=== PATIENT | male | born 1950 | race Caucasian/White ===

== ENCOUNTER 2024-03-07 04:03 | Inpatient (IN) | payer OTHER ==
[~2024-03-07] VITALS: Ht 177.8 cm; Wt 124.3 kg
[2024-03-07] VITALS (8 sets, daily range): BP systolic 111–148; BP diastolic 62–81
[2024-03-07 04:17] LABS: BASOPHILS ABSOLUTE AUTO 0.05 K/mm3 (0.00-0.23); BASOPHILS PERCENT AUTO 1 % (0-2); EOSINOPHILS ABSOLUTE AUTO 0.24 K/mm3 (0.00-0.68); EOSINOPHILS PERCENT AUTO 2 % (0-6); Hematocrit 33.5 % (37.0-53.0); Hemoglobin 11.3 g/dL (13.5-17.5); IMMATURE GRAN ABSOLUTE AUTO 0.04 K/mm3 (0.00-0.10); IMMATURE GRAN PERCENT AUTO 0 % (0-1); LYMPHOCYTES PERCENT AUTO 29 % (21-46); MONOCYTES ABSOLUTE AUTO 0.77 K/mm3 (0.16-1.47); MONOCYTES PERCENT AUTO 8 % (4-13); Mean Corpuscular HGB 32.1 pg (26.0-34.0); Mean Corpuscular HGB Conc 33.7 g/dL (31.5-36.5); Mean Corpuscular Volume 95 fL (80-100); Mean Platelet Volume 10.5 fL (9.1-12.4); NEUTROPHILS ABSOLUTE AUTO 6.21 K/mm3 (1.96-9.15); NEUTROPHILS PERCENT AUTO 60 % (41-73); Platelet Count 213 K/mm3 (150-400); RDW Coefficient Variation 13.2 % (11.7-14.2); RDW Standard Deviation 45.5 fL (35.1-46.3); Red Blood Cell Count 3.52 M/mm3 (4.30-5.90); White Blood Cell Count 10.31 K/mm3 (4.00-11.30)
[2024-03-07 04:46] LABS: Alanine Aminotransfer (ALT/SGP 24 U/L (12-78); Albumin, Blood 3.2 g/dL (3.4-5.0); Albumin/Globulin Ratio 0.8 (0.8-1.8); Alk Phos 42 U/L (50-136); Anion Gap 17 mmol/L (3-11); Aspartate Aminotrans (AST/SGOT 26 U/L (12-37); Bilirubin, Total 0.5 mg/dL (0.1-1.0); Blood Urea Nitrogen 31 mg/dL (8-24); Bun/Creatinine Ratio 12.3 (12.0-20.0); CO2, Blood 21 mmol/L (21-32); Calcium, Blood 9.5 mg/dL (8.5-10.1); Chloride, Blood 108 mmol/L (98-108); Creatinine, Blood 2.52 mg/dL (0.60-1.20); Globulin, Blood 3.9 g/dL (2.2-4.0); Glomerular Filtration Rate 26 (60-); Glucose, Blood 147 mg/dL (70-99); Sodium, Blood 142 mmol/L (136-145); Total Protein, Blood 7.1 g/dL (6.4-8.2)
[2024-03-07] MEDS ORDERED: Diltiazem HCl 5 MG / ML 5ML Vial IV ONE (04:50)
[2024-03-07] MEDS ORDERED: NS 1,000 ML IV SCH ×2 (04:55→06:00)
[2024-03-07] MEDS ORDERED: Aspirin 81 MG Chew PO ONE (05:05)
[2024-03-07] MEDS ORDERED: Metoprolol Tartrate 1 MG/ML 5 ML VIAL IV PRN (06:00)
[2024-03-07] MEDS ORDERED: Metoprolol Tartrate 1 MG/ML 5 ML VIAL IV ONE (06:00)
[2024-03-07 06:16] LABS: CHOL/HDL RATIO 6.4; Cholesterol 211 mg/dL (50-200); HDL Cholesterol 33 mg/dL (>39); LDL/HDL RATIO 4.4; Low Density Lipoprotein Chol 145 mg/dL (0-110); Triglycerides 167 mg/dL (30-160); Very Low Density Lipoprot Chol 33 mg/dL (6-32)
[2024-03-07] MEDS ORDERED: HydrALAZINE HCl 20 MG / ML 1ML Vial IV PRN (06:20)
[2024-03-07] MEDS ORDERED: TAMSULOSIN HCL0.4 M1 PO (06:58)
[2024-03-07] MEDS ORDERED: Enoxaparin 30 MG/0.3 ML SYR SC SCH (09:00)
[2024-03-07] MEDS ORDERED: Tamsulosin HCl 0.4 MG Cap PO SCH (09:00)
--- NOTE | 2024-03-07 09:55 | NUR ---
SPOKE WITH DR. SHAY IN PERSON. NOTIFIED HIM OF THE PATIENT'S TROPONIN 717 CH. NO CHANGE IN PATIENT'S CONDITION. VITALS STABLE. NO CP
[2024-03-07 16:14] LABS: Anti-Xa UFH, PHA Monitoring <0.10 IU/mL; International Normalized Ratio 1.07; Prothrombin Time Results 11.4 Sec (9.7-11.5)
[2024-03-07] MEDS ORDERED: Dose Adjust by Pharmacy XX STA (16:26)
[2024-03-07] MEDS ORDERED: Heparin Sodium,Porcine/0.5 NS 500 ML IV SCH (16:30)
[2024-03-07] MEDS ORDERED: Heparin Sodium 5000 Units/ML 1ML MDV IV ONE (16:30)
--- NOTE | 2024-03-07 17:54 | NUR ---
PATIENT IS ALERT AND ORIENTED AND COOPERATIVE WITH CARE. NO C/O CP THROUGHOUT THIS SHIFT. TROPONINS WERE ELEVATED TODAY. DR. SHAH CONSULTED THIS AFTERNOON. PATIENT STARTED ON HEPARIN DRIP. IS AT THE BEDSIDE. MAKENNA SULLIVAN'Jonathon PER PATIENT'S REQUEST. WILL CONTINUE TTO MONITOR
[2024-03-07] MEDS ORDERED: Metoprolol Tartrate 25 MG Tab PO SCH (21:00)
[2024-03-07] MEDS ORDERED: Clarify Drug Order XX ONE (23:15)
[2024-03-08 04:06] VITALS: BP 125/78
--- NOTE | 2024-03-08 04:40 | NUR ---
SHIFT SUMMARY. SHIFT HAS BEEN MOSTLY UNREMARKABLE. PT AOX4, PLEASANT, COOPERATIVE WITH CARE, CALLS APPROPRIATELY, ABLE TO MAKE NEEDS KNOWN. HAS BEEN ABLE TO SLEEP SPORADICALLY THROUGHOUT SHIFT. CONTINUES TO DENY CHEST PAIN OR PRESSURE. VITALS STABLE THROUGHOUT SHIFT. TELE ON WITH NO ACUTE CHANGES OR EVENTS. CONTINUES TO RUN SINUS IN THE 60s-80s. HAS BEEN UNABLE TO VOID THROUGHOUT SHIFT. STRAIGHT CATH PERFORMED THIS MORNING PER ORDER OF RESIDENT DR. BALBUENA AND 1 L OF URINE WAS COLLECTED. HAS NOT VOIDED SINCE, IF NO VOIDING BEFORE SHIFT CHANGE WILL PERFORM ADDITIONAL BLADDER SCAN. BED LOCKED IN LOWEST POSITION. CALL LIGHT LEFT WITHIN REACH. CONTINUING TO MONITOR.
[2024-03-08 05:14] LABS: BASOPHILS ABSOLUTE AUTO 0.05 K/mm3 (0.00-0.23); BASOPHILS PERCENT AUTO 0 % (0-2); EOSINOPHILS ABSOLUTE AUTO 0.26 K/mm3 (0.00-0.68); EOSINOPHILS PERCENT AUTO 2 % (0-6); Hematocrit 32.2 % (37.0-53.0); Hemoglobin 11.1 g/dL (13.5-17.5); IMMATURE GRAN ABSOLUTE AUTO 0.03 K/mm3 (0.00-0.10); IMMATURE GRAN PERCENT AUTO 0 % (0-1); LYMPHOCYTES ABSOLUTE AUTO 3.67 K/mm3 (0.84-5.20); LYMPHOCYTES PERCENT AUTO 32 % (21-46); MONOCYTES ABSOLUTE AUTO 0.68 K/mm3 (0.16-1.47); MONOCYTES PERCENT AUTO 6 % (4-13); Mean Corpuscular HGB 32.6 pg (26.0-34.0); Mean Corpuscular HGB Conc 34.5 g/dL (31.5-36.5); Mean Corpuscular Volume 94 fL (80-100); Mean Platelet Volume 10.1 fL (9.1-12.4); NEUTROPHILS ABSOLUTE AUTO 6.64 K/mm3 (1.96-9.15); NEUTROPHILS PERCENT AUTO 59 % (41-73); Platelet Count 213 K/mm3 (150-400); RDW Coefficient Variation 13.2 % (11.7-14.2); RDW Standard Deviation 45.7 fL (35.1-46.3); Red Blood Cell Count 3.41 M/mm3 (4.30-5.90); White Blood Cell Count 11.33 K/mm3 (4.00-11.30)
[2024-03-08] MEDS ORDERED: Clarify Drug Order XX ONE (05:35)
[2024-03-08 05:36] LABS: Albumin, Blood 3.1 g/dL (3.4-5.0); Albumin/Globulin Ratio 0.9 (0.8-1.8); Bilirubin, Total 0.4 mg/dL (0.1-1.0); Calcium, Blood 9.2 mg/dL (8.5-10.1); Creatinine, Blood 2.09 mg/dL (0.60-1.20); Globulin, Blood 3.6 g/dL (2.2-4.0); Potassium, Blood 3.6 mmol/L (3.5-5.5); Total Protein, Blood 6.7 g/dL (6.4-8.2)
[2024-03-08 07:49] VITALS: BP 159/84
[2024-03-08] MEDS ORDERED: Aspirin 81 MG Chew PO SCH (09:00)
[2024-03-08] MEDS ORDERED: Ondansetron HCl 2 MG / ML 2ML Vial IV PRN (10:15)
[2024-03-08 11:06] VITALS: BP 151/85
--- NOTE | 2024-03-08 13:55 | NUR ---
PT UPDATE; STRESS TEST AND IS GETTING DONE THIS AFTERNOON PT KEPT NPO SINCE AFTER BREAKFAST. PT HAS BEEN COMPLAINING OF DIZZINESS AND WEAKNESS WHICH HAS BEEN GOING ON SINCE HE HAD PROBLEMS WITH PROSTATE PER . ALSO WAS C/O NAUSEA, WAS MEDICATED WITH ZOFRAN ONCE AND WAS EFFECTIVE. PT HAS BEEN SLEEPING ON AND OFF SINCE THEN. PT WAS BLADDER SCANNED THIS MORNING HAD 21 MLS URINE RETAINED, PT ABLE TO VOID 125MLS TWO HOURS AFTER. WILL CONTINUE TO BLADDER SCAN PRN T/O SHIFT. HAS BEEN AT THE BEDSIDE T/O SHIFT UPDATED REGARDING PT'S STATUS AND PLANS OF CARE. PT NOW LAYING IN BED AWAITING FOR NUC MED, CALL LIGHTS IN REACH WILL CONTINUE TO MONITOR
[2024-03-08 16:20] LABS: Source, Urine Foley catheter
[2024-03-08 16:23] LABS: Bilirubin, Urine Neg (Neg); Blood, Urine 5+ (Neg); Glucose Qualitative, Urine Neg (Neg); Ketones, Urine Neg (Neg); Leukocyte Esterase, Urine Neg (Neg); Nitrite, Urine Neg (Neg); Protein, Urine 2+ (Neg); Specific Gravity, Urine 1.015 (1.003-1.022); Urobilinogen, Urine NORM (Normal)
[2024-03-08 16:26] LABS: Color, Urine Pale Yellow (P-Yellow)
[2024-03-08 16:32] VITALS: BP 146/89
[2024-03-08 16:32] LABS: Red Blood Cells, Urine 25-50 /hpf (0-2); White Blood Cells, Urine 0-2 /hpf (0-5)
[2024-03-08 16:33] LABS: Bacteria Not Seen /hpf; Squamous Epithelial Cells Not Seen /hpf (Few)
[2024-03-08 16:35] LABS: Appearance, Urine Hazy (Clear)
--- NOTE | 2024-03-08 17:40 | NUR ---
PT SUMMARY; MENSAH WAS PLACED PER MD ORDER PT WAS RETAINING 1300MLS PER BLADDER SCANNER. PT WAS AGREEABLE WITH PLACING THE MENSAH TOLERATED WELL, C/O BURNING PAIN AFTER INSERTION AND HAS EASED A LITTLE AFTER. FIRST PORTION ON STRESS WAS DONE, PT TO BE NPO AFTER MIDNIGHT, NO CAFFEINE AFTER 7PM TONIGHT, SECOND PORTION OF STRESS TEST TO BE DONE AT 8 IN THE MORNING, PT MADE AWARE OF THE INSTRUCTIONS. PT STILL WAS FEELING DIZZY WITH MOVEMENTS, NAUSEA HAS GONE AWAY, NO CHEST PAIN/PRESSURE. VITALS HRR SR 60-70'S, SBP 140-150'S, SATS ABOVE 95% ON RA, AFERBILE. NO OTHER ISSUES ENCOUNTERED WILL REPORT TO ONCOMING SHIFT
[2024-03-08 20:42] VITALS: BP 159/84
[2024-03-08] MEDS ORDERED: Melatonin 3 MG Tab PO PRN (22:05)
[2024-03-09 00:27] VITALS: BP 127/62
[2024-03-09 03:11] VITALS: BP 153/79
[2024-03-09 03:14] LABS: BASOPHILS ABSOLUTE AUTO 0.07 K/mm3 (0.00-0.23); BASOPHILS PERCENT AUTO 1 % (0-2); EOSINOPHILS ABSOLUTE AUTO 0.35 K/mm3 (0.00-0.68); EOSINOPHILS PERCENT AUTO 3 % (0-6); Hematocrit 34.8 % (37.0-53.0); Hemoglobin 11.9 g/dL (13.5-17.5); IMMATURE GRAN ABSOLUTE AUTO 0.06 K/mm3 (0.00-0.10); IMMATURE GRAN PERCENT AUTO 0 % (0-1); LYMPHOCYTES ABSOLUTE AUTO 3.89 K/mm3 (0.84-5.20); LYMPHOCYTES PERCENT AUTO 29 % (21-46); MONOCYTES ABSOLUTE AUTO 0.86 K/mm3 (0.16-1.47); MONOCYTES PERCENT AUTO 6 % (4-13); Mean Corpuscular HGB 32.3 pg (26.0-34.0); Mean Corpuscular HGB Conc 34.2 g/dL (31.5-36.5); Mean Corpuscular Volume 95 fL (80-100); NEUTROPHILS ABSOLUTE AUTO 8.33 K/mm3 (1.96-9.15); NEUTROPHILS PERCENT AUTO 62 % (41-73); Platelet Count 249 K/mm3 (150-400); RDW Coefficient Variation 13.2 % (11.7-14.2); RDW Standard Deviation 46.1 fL (35.1-46.3); Red Blood Cell Count 3.68 M/mm3 (4.30-5.90); White Blood Cell Count 13.56 K/mm3 (4.00-11.30)
[2024-03-09 03:32] LABS: Albumin, Blood 3.1 g/dL (3.4-5.0); Albumin/Globulin Ratio 0.8 (0.8-1.8); Bilirubin, Total 0.2 mg/dL (0.1-1.0); Bun/Creatinine Ratio 12.4 (12.0-20.0); Calcium, Blood 9.3 mg/dL (8.5-10.1); Creatinine, Blood 1.86 mg/dL (0.60-1.20); Globulin, Blood 4.1 g/dL (2.2-4.0); Potassium, Blood 3.9 mmol/L (3.5-5.5); Total Protein, Blood 7.2 g/dL (6.4-8.2)
[2024-03-09] MEDS ORDERED: Clarify Drug Order XX ONE (03:50)
--- NOTE | 2024-03-09 05:00 | NUR ---
SHIFT SUMMARY. SHIFT HAS BEEN MOSTLY UNREMARKABLE. PT AOX4, PLEASANT, COOPERATIVE WITH CARE, CALLS APPROPRIATELY, ABLE TO MAKE NEEDS KNOWN. HAS SLEPT THROUGHOUT MOST OF SHIFT. HAS CONTINUED TO DENY CHEST PAIN THROUGHOUT SHIFT, SCHEDULED TO GET SECOND PART OF STRESS TEST 03/09 ON DAY SHIFT. TELE ON THROUGHOUT SHIFT, CONTINUES TO RUN SINUS IN 50s-70s. VITALS STABLE. NOTICED THIS MORNING THAT URINE IN MENSAH BAG WAS RED COLORED, PT REPORTED THAT HE FELT IT TUG AT ONE POINT IN THE NIGHT. PATENT ON ASSESSMENT AND CONTINUING TO DRAIN TO GRAVITY AND PT DENIES PAIN ASSOCIATED OUTSIDE OF DISCOMFORT WITH CATHETER. HEPARIN INFUSING THROUGHOUT SHIFT. MORNING LABS SHOWED NO SIGNIFICANT CHANGES IN ANTI-XA OR HGB. BED LOCKED IN LOWEST POSITION. CALL LIGHT LEFT WITHIN REACH. CONTINUING TO MONITOR.
[2024-03-09 07:35] VITALS: BP 146/85
[2024-03-09] MEDS ORDERED: Regadenoson 0.4 MG/5 ML SYRINGE ONE (08:58)
[2024-03-09 11:52] VITALS: BP 146/82
[2024-03-09] MEDS ORDERED: ASPI81CH PO (14:14)
[2024-03-09] MEDS ORDERED: Apixaban 5 MG Tab PO ONE (14:15)
[2024-03-09] MEDS ORDERED: METO25 PO (14:15)
[2024-03-09] MEDS ORDERED: ELIQUIS5 M2 PO (14:17)
[2024-03-09] MEDS ORDERED: Midodrine 5 MG Tab PO ONE (14:35)
--- NOTE | 2024-03-09 16:29 | NUR ---
PT DISCHARGED TO HOME WITH DISCHARGE ORDERS. [facility] STRESS TEST RESULTED DIRECTOR OF ROTC LET DR GILLETTE AWARE RECOMMENDED NO ANGIO FOR NOW AND FF-UP WITH CARDIOLOGY OUTPT, DR SHAY MADE AWARE OF THE STRESS TEST RESULT, TALKED TO THE PT OVER THE PHONE IN THE ROOM FOR DISCHARGE PLAN. HEP GTT DC'D, PT STARTED ON ELIQUIS PT WAS GIVEN FIRST DOSE THIS AFTERNOON. VITALS HAS BEEN STABLE FOR THE SHIFT PT DIDNT C/O ANY DIZZINESS NOT UNTIL PT STARTED TO GET UP AND MOVE AROUND PT WAS GIVEN EDUCATION ABOUT PRECAUTIONS FAR AMBULATING VIA WALKER AND SITTING AT THE SIDE OF THE BED DANGLING LEGS UNTIL DIZZINESS HAS RESOLVED. NO FURTHER DIZZINESS FAR GETTING PT TO WHEELCHAIR AND OUT FOR TRANSPORT. NEW MEDICATIONS AND DISCHARGE INSTRUCTIONS DISCLOSED WITH AND THE PT. PT WAS SENT HOME WITH THE CATHETER, PT TO FF-UP WITH UROLOGY NICO. CATHETER INSTRUCTIONS FAR CATH CARE WAS PROVIDED WITH THE PT, CLEANSING CLOTHS AND URINARY BAG PROVIDED. VITALS HRR REMAINED SR SBP 140'S, SATS ABOVE 94% ON RA, AFEBRILE. PRESCRIPTION SENT TO [facility] NO OTHER ISSUES REPORTED ALL BELONGINGS SENT WITH THE PT, ACCOMPANIED PT VIA WHEELCHAIR
== END 2024-03-09 16:03 | disposition home or self-care (01) | DRG 281 ==
LOC: ER 04:03 → PCU 06:14
PROVIDERS: Emergency Medicine; Internal Medicine; ADMIT Internal Medicine
DX: I48.91 Unspecified atrial fibrillation (principal); I21.4 Non-ST elevation (NSTEMI) myocardial infarction; I16.1 Hypertensive emergency; N17.9 Acute kidney failure, unspecified; I10 Essential (primary) hypertension; I25.10 Atherosclerotic heart disease of native coronary artery without angina pectoris; D64.9 Anemia, unspecified; N28.9 Disorder of kidney and ureter, unspecified; R79.89 Other specified abnormal findings of blood chemistry; I16.0 Hypertensive urgency; N40.1 Benign prostatic hyperplasia with lower urinary tract symptoms; R33.8 Other retention of urine; E78.5 Hyperlipidemia, unspecified; E86.0 Dehydration; I25.2 Old myocardial infarction; Z95.5 Presence of coronary angioplasty implant and graft; Z91.148 Patient's other noncompliance with medication regimen for other reason; Z79.899 Other long term (current) drug therapy
CPT/HCPCS: 36415; 51702; 71045; 78452; 80053; 80061; 81001; 83690; 83880; 84443; 84484; 85025; 85379; 85520; 85610; 85730; 93005; 93010; 93017; 96374-59; 99285-25; A9270; A9500; C8929; J1644; J2405; J2785; J7030; Q9957

== ENCOUNTER 2024-07-16 20:14 | Emergency (ER) | payer OTHER ==
[~2024-07-16] VITALS: Ht 180.3 cm; Wt 124.7 kg
[~2024-07-16 20:14] MED LIST: ASPI81CH PO; ELIQUIS5 M2 PO; METO25 PO; TAMSULOSIN HCL0.4 M1 PO
[2024-07-16 21:56] LABS: BASOPHILS ABSOLUTE AUTO 0.07 K/mm3 (0.00-0.23); BASOPHILS PERCENT AUTO 0 % (0-2); EOSINOPHILS ABSOLUTE AUTO 0.01 K/mm3 (0.00-0.68); EOSINOPHILS PERCENT AUTO 0 % (0-6); Hematocrit 39.9 % (37.0-53.0); Hemoglobin 13.4 g/dL (13.5-17.5); IMMATURE GRAN ABSOLUTE AUTO 0.43 K/mm3 (0.00-0.10); IMMATURE GRAN PERCENT AUTO 2 % (0-1); LYMPHOCYTES ABSOLUTE AUTO 0.28 K/mm3 (0.84-5.20); LYMPHOCYTES PERCENT AUTO 2 % (21-46); MONOCYTES ABSOLUTE AUTO 0.56 K/mm3 (0.16-1.47); MONOCYTES PERCENT AUTO 3 % (4-13); Mean Corpuscular HGB 30.9 pg (26.0-34.0); Mean Corpuscular HGB Conc 33.6 g/dL (31.5-36.5); Mean Corpuscular Volume 92 fL (80-100); Mean Platelet Volume 9.3 fL (9.1-12.4); NEUTROPHILS ABSOLUTE AUTO 17.33 K/mm3 (1.96-9.15); NEUTROPHILS PERCENT AUTO 93 % (41-73); Platelet Count 194 K/mm3 (150-400); RDW Coefficient Variation 12.9 % (11.7-14.2); RDW Standard Deviation 43.3 fL (35.1-46.3); Red Blood Cell Count 4.33 M/mm3 (4.30-5.90); White Blood Cell Count 18.68 K/mm3 (4.00-11.30)
[2024-07-16 22:17] LABS: Albumin, Blood 3.1 g/dL (3.4-5.0); Albumin/Globulin Ratio 0.7 (0.8-1.8); Bilirubin, Total 0.8 mg/dL (0.1-1.0); Bun/Creatinine Ratio 19.2 (12.0-20.0); Calcium, Blood 9.4 mg/dL (8.5-10.1); Creatinine, Blood 1.04 mg/dL (0.60-1.20); Globulin, Blood 4.4 g/dL (2.2-4.0); Potassium, Blood 3.5 mmol/L (3.5-5.5); Total Protein, Blood 7.5 g/dL (6.4-8.2)
[2024-07-18] MEDS ORDERED: FINA5 PO (10:12)
== END 2024-07-17 01:00 | disposition left against medical advice (07) ==
LOC: ER 20:14
PROVIDERS: Student in an Organized Health Care Education/Training Program
DX: R11.10 Vomiting, unspecified (principal); Z53.29 Procedure and treatment not carried out because of patient's decision for other reasons
CPT/HCPCS: 80053; 83690; 84484; 85025; 93005; 93010; 99282-25

== ENCOUNTER 2024-07-18 01:56 | Inpatient (IN) | payer MEDICARE ==
[~2024-07-18] VITALS: Ht 177.8 cm; Wt 125.5 kg
[2024-07-18 02:22] LABS: BASOPHILS ABSOLUTE AUTO 0.06 K/mm3 (0.00-0.23); BASOPHILS PERCENT AUTO 0 % (0-2); EOSINOPHILS ABSOLUTE AUTO 0.03 K/mm3 (0.00-0.68); EOSINOPHILS PERCENT AUTO 0 % (0-6); Hematocrit 38.1 % (37.0-53.0); Hemoglobin 13.1 g/dL (13.5-17.5); IMMATURE GRAN ABSOLUTE AUTO 0.21 K/mm3 (0.00-0.10); IMMATURE GRAN PERCENT AUTO 1 % (0-1); LYMPHOCYTES ABSOLUTE AUTO 0.42 K/mm3 (0.84-5.20); LYMPHOCYTES PERCENT AUTO 3 % (21-46); MONOCYTES ABSOLUTE AUTO 0.93 K/mm3 (0.16-1.47); MONOCYTES PERCENT AUTO 6 % (4-13); Mean Corpuscular HGB 31.4 pg (26.0-34.0); Mean Corpuscular HGB Conc 34.4 g/dL (31.5-36.5); Mean Corpuscular Volume 91 fL (80-100); Mean Platelet Volume 9.4 fL (9.1-12.4); NEUTROPHILS ABSOLUTE AUTO 13.91 K/mm3 (1.96-9.15); NEUTROPHILS PERCENT AUTO 89 % (41-73); Platelet Count 170 K/mm3 (150-400); RDW Standard Deviation 43.7 fL (35.1-46.3); Red Blood Cell Count 4.17 M/mm3 (4.30-5.90); White Blood Cell Count 15.56 K/mm3 (4.00-11.30)
[2024-07-18 02:34] LABS: Albumin/Globulin Ratio 0.7 (0.8-1.8); Bilirubin, Total 0.7 mg/dL (0.1-1.0); Bun/Creatinine Ratio 18.4 (12.0-20.0); Calcium, Blood 9.6 mg/dL (8.5-10.1); Creatinine, Blood 1.14 mg/dL (0.60-1.20); Globulin, Blood 4.2 g/dL (2.2-4.0); Potassium, Blood 4.1 mmol/L (3.5-5.5); Total Protein, Blood 7.2 g/dL (6.4-8.2)
[2024-07-18 03:46] LABS: Source, Urine Foley catheter
[2024-07-18 03:49] LABS: Appearance, Urine Turbid (Clear); Bilirubin, Urine Neg (Neg); Blood, Urine 5+ (Neg); Color, Urine Yellow (P-Yellow); Glucose Qualitative, Urine Neg (Neg); Ketones, Urine 3+ (Neg); Leukocyte Esterase, Urine 3+ (Neg); Nitrite, Urine Pos (Neg); Protein, Urine 3+ (Neg); Urobilinogen, Urine NORM (Normal)
[2024-07-18 04:03] LABS: Amorphous Light (0-Heavy); Bacteria Many /hpf; Red Blood Cells, Urine TNTC /hpf (0-2); Squamous Epithelial Cells Few /hpf (Few); White Blood Cells, Urine TNTC /hpf (0-5)
[2024-07-18] MEDS ORDERED: Ondansetron 4 MG TAB PO PRN (04:15)
[2024-07-18] MEDS ORDERED: FLU VACC TS2024-25(6MOS UP)/PF 45 MCG/0.5 ML SYRINGE IM ONE (04:15)
[2024-07-18] MEDS ORDERED: CefTRIAXone Sodium 1,000 MG in NS 100 ML IV SCH (04:19)
[2024-07-18] MEDS ORDERED: Potassium Chl 20MEQ/Water100ML 100 ML IV STA (04:21)
[2024-07-18] MEDS ORDERED: NS 1,000 ML IV ONE (04:24)
[2024-07-18 04:47] LABS: Magnesium, Blood 1.8 mg/dL (1.6-2.4)
[2024-07-18] MEDS ORDERED: Magnesium Sulf 2 GM/Water 50ML 50 ML IV ONE (08:00)
[2024-07-18] MEDS ORDERED: Lactobacil 2-S.Thermo-Bifido 1 1 Cap PO SCH (09:00)
[2024-07-18] MEDS ORDERED: FINA5 PO (10:12)
[2024-07-18 15:27] VITALS: BP 114/59
--- NOTE | 2024-07-18 16:14 | NUR ---
ADMISSION NOTE: PATIENT ARRIVES TO ROOM AT 1505 VIA WHEELCHAIR, TRANSFERRED TO BED USING SLIDER SHEET c 3 MAX ASSIST. PATIENT ADMISSION, MEDRIC AND SKIN ASSESSMENT c 2 RN'S VERIFIED COMPLETED. PATIENT ORIENTATED TO ROOM AND CALL SYSTEM. PATIENT A/OX4, CALM, PLEASANT AND COOPERATIVE c CARE. PATIENT ON TELE, SR HR IN THE MID 60'S BPM. PATIENT HAS MENSAH, PLACED IN ER FOR ACUTE RETENTION. PATIENT REPORTS DOES SELF CATH AT HOME AND BEEN FOLLOWING c UROLOGIST IN [place]. PATIENT ALSO REPORTS HE REFUSED ANTICOAGULATION IN THE PAST BY PERSONAL CHOICE, HIM AND HIS PREFFERS NATURAL SUPPLEMENTS. VITAL SIGNS REVIEWED. PATIENT DENIES CP/PRESSURE, SOB, N/V AND DIZZINESS. PATIENT HAS PIV TO LAC AND R FOREARM SL. PATIENT WISHES TO STAYED OVERNIGHT AND WOULD LIKE TO GO HOME TOMORROW. CALL LIGHT IN REACH. SPOUSE AT BEDSIDE VISITING AT THIS TIME.
[2024-07-18 19:17] VITALS: BP 135/72
[2024-07-18] MEDS ORDERED: Tamsulosin HCl 0.4 MG Cap PO SCH (21:00)
[2024-07-19] VITALS (9 sets, daily range): BP systolic 119–156; BP diastolic 69–92
--- NOTE | 2024-07-19 04:08 | NUR ---
SHIFT SUMMARY ADMITTED FOR AFIB. DNR CODE. FOUND TO HAVE A UTI. PLAN IS FOR DC HOME W/ WHEN STABLE. ANTIB RX ARE SCHEDULED. MENSAH IN PLACE FOR RETENTION, HE STRAIGHT CATH'S AT HOME. TELEMETRY: NSR @ 68 BPM. CARDIAC DIET. ON RA. STANDBY ASSIST - BRP. HX OF AFIB. HE DID CONVERT FROM AFIB TO NSR ON A PREVIOUS SHIFT. BLOOD CULTURES WERE POSITIVE THIS SHIFT FOR GRAM VARIABLE BACCILI. HOSPITALIST INFORMED. HE IS A&O X4.
[2024-07-19 04:59] LABS: BASOPHILS ABSOLUTE AUTO 0.05 K/mm3 (0.00-0.23); BASOPHILS PERCENT AUTO 1 % (0-2); EOSINOPHILS ABSOLUTE AUTO 0.11 K/mm3 (0.00-0.68); EOSINOPHILS PERCENT AUTO 1 % (0-6); Hematocrit 35.1 % (37.0-53.0); Hemoglobin 12.1 g/dL (13.5-17.5); IMMATURE GRAN ABSOLUTE AUTO 0.05 K/mm3 (0.00-0.10); IMMATURE GRAN PERCENT AUTO 1 % (0-1); LYMPHOCYTES ABSOLUTE AUTO 1.79 K/mm3 (0.84-5.20); LYMPHOCYTES PERCENT AUTO 17 % (21-46); MONOCYTES ABSOLUTE AUTO 0.74 K/mm3 (0.16-1.47); MONOCYTES PERCENT AUTO 7 % (4-13); Mean Corpuscular HGB 31.3 pg (26.0-34.0); Mean Corpuscular HGB Conc 34.5 g/dL (31.5-36.5); Mean Corpuscular Volume 91 fL (80-100); Mean Platelet Volume 9.6 fL (9.1-12.4); NEUTROPHILS ABSOLUTE AUTO 8.05 K/mm3 (1.96-9.15); NEUTROPHILS PERCENT AUTO 75 % (41-73); Platelet Count 171 K/mm3 (150-400); RDW Coefficient Variation 13.1 % (11.7-14.2); Red Blood Cell Count 3.86 M/mm3 (4.30-5.90); White Blood Cell Count 10.79 K/mm3 (4.00-11.30)
[2024-07-19 05:27] LABS: Bun/Creatinine Ratio 16.8 (12.0-20.0); Calcium, Blood 8.8 mg/dL (8.5-10.1); Creatinine, Blood 1.01 mg/dL (0.60-1.20); Potassium, Blood 3.9 mmol/L (3.5-5.5); Thyroid Stimulating Hormone 2.15 uIU/mL (0.360-4.800)
[2024-07-19] MEDS ORDERED: Enoxaparin 40 MG/0.4 ML SYR SC SCH (09:00)
--- NOTE | 2024-07-19 17:07 | NUR ---
SHIFT SUMMARY: PATIENT A/OX4, PLEASANT AND COOPERATIVE c CARE. PATIENT DENIES CP/PRESSURE, SOB, N/V AND DIZZINESS. PATIENT HAS HAD NO EVENTS ON TELE, SR HR IN HIGH 60'S BPM. PATIENT HAD RENAL UNTRASOUND DONE TODAY c NEGATIVE RESULT. PATIENT HAS GOOD APPETITE, MENSAH PLACED IN ER FOR ACUTE RETENTION, PATENT DRAINING YELLOW URINE TO GRAVITY. VITAL SIGNS REVIEWED. CALL LIGHT IN REACH.
[2024-07-19] MEDS ORDERED: Metoprolol Tartrate 1 MG/ML 5 ML VIAL IV ONE ×2 (17:35→21:00)
[2024-07-19] MEDS ORDERED: Metoprolol Tartrate 1 MG/ML 5 ML VIAL IV PRN (17:35)
--- NOTE | 2024-07-19 17:56 | NUR ---
ADDITIONAL NOTE: AT AROUND 1721 NOTIFIED BY PCU PROJECT DEVELOPMENT ENGINEER, ALEX PATIENT HR WENT UP TO 150'S BRIEFLY AND SUSTAINING IN THE 140'S BPM, ST. PATIENT LAYING IN BED WATCHING TV, REPORTS I'M EXCITED WATCHING MY GAMES PLAYING RIGHT NOW. DENIES CP/PRESSURE, SOB AND DIZZINESS. VITALS TAKEN; TEMP 97.5, HR 154, BP 156/89, RR 18, O2 96% RA. DR. CLEMENTE NOTIFIED c THIS CONCERNED, RECEIVED ORDER TO GIVE OT DOSE 5 MG IV METOPROLOL AND GIVE Q6 5 MG c THE HR GREATER THAN 120 BPM. IV METOPROLOL ADMINSITERED AT 1744. VITALS TAKEN; BP 135/85 c HR OF 137 BPM.
--- NOTE | 2024-07-19 18:11 | NUR ---
NOTE: AT 1750 PER NABIL AFTER REVIEWING THE TELE STRIPS IT APPEARS PATIENT WAS CONVERTED TO AFIB AT AROUND 1722. PATIENT HR IN THE HIGH 130'S BPM, AFIB. DR. CLEMENTE NOTIFIED c THIS ISSUE, RECEIVED ORDER TO GIVE CARDIZEM 10 MG IV NOW.
[2024-07-19] MEDS ORDERED: Diltiazem HCl 5 MG / ML 5ML Vial IV ONE (18:20)
--- NOTE | 2024-07-19 19:13 | NUR ---
NOTE: PATIENT RECEIVED CARDIZEM IV PER ORDER. PATIENT STILL AFIB HR 130'S-140'S BPM. BEDSIDE REPORT GIVEN TO CARMEN MARIA RN.
--- NOTE | 2024-07-19 21:00 | NUR ---
CALLED HOSPITALIST INFORMED HIM OF THE EARLIER DOSES OF CARDIZEM AND METOPROLOL GIVEN ON AM SHIFT. INFORMED HIM OF CONTINUED AFIB HR IN THE 130'S BPM. NEW METOPROLOL INJ ORDERED.
[2024-07-20] MEDS ORDERED: Melatonin 3 MG Tab PO PRN (00:05)
[2024-07-20 04:12] VITALS: BP 109/88
[2024-07-20 05:05] LABS: BASOPHILS ABSOLUTE AUTO 0.06 K/mm3 (0.00-0.23); BASOPHILS PERCENT AUTO 1 % (0-2); EOSINOPHILS ABSOLUTE AUTO 0.16 K/mm3 (0.00-0.68); EOSINOPHILS PERCENT AUTO 2 % (0-6); Hematocrit 39.1 % (37.0-53.0); Hemoglobin 13.5 g/dL (13.5-17.5); IMMATURE GRAN PERCENT AUTO 1 % (0-1); LYMPHOCYTES ABSOLUTE AUTO 2.95 K/mm3 (0.84-5.20); LYMPHOCYTES PERCENT AUTO 31 % (21-46); MONOCYTES ABSOLUTE AUTO 0.77 K/mm3 (0.16-1.47); MONOCYTES PERCENT AUTO 8 % (4-13); Mean Corpuscular HGB 31.3 pg (26.0-34.0); Mean Corpuscular HGB Conc 34.5 g/dL (31.5-36.5); Mean Corpuscular Volume 91 fL (80-100); Mean Platelet Volume 9.9 fL (9.1-12.4); NEUTROPHILS ABSOLUTE AUTO 5.39 K/mm3 (1.96-9.15); NEUTROPHILS PERCENT AUTO 57 % (41-73); Platelet Count 224 K/mm3 (150-400); RDW Coefficient Variation 12.8 % (11.7-14.2); RDW Standard Deviation 42.6 fL (35.1-46.3); Red Blood Cell Count 4.32 M/mm3 (4.30-5.90); White Blood Cell Count 9.43 K/mm3 (4.00-11.30)
--- NOTE | 2024-07-20 05:21 | NUR ---
SHIFT SUMMARY ADMITTED FOR AFIB. DNR CODE. IV ANTIB RX ARE SCHEDULED. PLAN IS FOR DC HOME WHEN STABLE. TELEMETRY: AFIB @ 117 BPM. AT BEGINNING OF SHIFT HIS HR WAS IN THE 140'S. HOSPITALIST INFORMED. IV METOPROLOL GIVEN (SEE PREVIOUS NOTE). MENSAH IN PLACE. HE SELF-CATHS AT HOME NORMALLY. HX OF AFIB. HE IS ON A CARDIAC DIET. BLOOD CULTURES WERE POSITIVE FOR GRAM VARIABLE BACCILI, PENDING FINAL RESULTS. POSSIBLE ECHO TODAY.
[2024-07-20 05:38] LABS: Bun/Creatinine Ratio 16.8 (12.0-20.0); Calcium, Blood 9.7 mg/dL (8.5-10.1); Creatinine, Blood 1.13 mg/dL (0.60-1.20); Potassium, Blood 4.1 mmol/L (3.5-5.5)
[2024-07-20 07:52] VITALS: BP 113/75
--- NOTE | 2024-07-20 08:10 | NUR ---
NOTE: PATIENT STILL IN AFIB HR IN THE 120'S BPM, BP 113/75. DR. CLEMENTE UPDATED c THIS CONCERNED, RECEIVED ORDER TO GIVE PO METOPROLOL TARTRATE BID TO START THE DOSE NOW.
[2024-07-20] MEDS ORDERED: Metoprolol Tartrate 25 MG Tab PO SCH (09:00)
[2024-07-20] MEDS ORDERED: Melatonin 5 MG Tablet PO PRN (14:35)
[2024-07-20 14:51] VITALS: BP 104/65
--- NOTE | 2024-07-20 16:34 | NUR ---
SHIFT SUMMARY: PATIENT RECEIVED PO METOPROLOL DOSE THIS AM. PATIENT STILL AFIB HR RANGES 70'S TO 90'S BPM. PATIENT DENIES CP/PRESSURE, SOB, N/V AND DIZZINESS. PATIENT HAS PROCDUCTIVE COUGH c YELLOW PHLEGM. PATIENT ECHO DONE TODAY c RESULT. PATIENT HAS GOOD APPETITE, MENSAH PLACED IN ER FOR ACUTE RETENTION, PATENT DRAINING YELLOW URINE TO GRAVITY. PATIENT AMBULATED TO BATHROOM c SBA AND HAD LARGE BROWN BM. PATIENT RECEIVED SCHEDULED MEDS PER EMAR. VITAL SIGNS REVIEWED. CALL LIGHT IN REACH. SPOUSE AT BEDSIDE VISITING, UPDATE GIVEN TO SPOUSE, VERBALIZED UNDERSTANDING AND NO FURTHER QUESTIONS AT THIS TIME.
[2024-07-20 19:55] VITALS: BP 119/69
[2024-07-20] MEDS ORDERED: Apixaban 5 MG Tab PO SCH (21:00)
[2024-07-21 03:25] VITALS: BP 119/73
--- NOTE | 2024-07-21 06:41 | NUR ---
AAOX4, INDEPENDENT IN ROOM AND COOPERATIVE WITH CARES. 0038 PT CONVERTED TO SR @ 68. PT STRAIGHT CAHTS @ HOME PRN, HAS MENSAH CATH WHILE IN HOSPITAL FOR RETENTION. EDUCATIN GIVEN ON CONTINUING ELIQUIS AND METOPROL TARTRATE @ HOME, PT IS HESITENT TO DO THIS WOULD PREFER [facility]. PT REPORTS THE BEST SLEEP HE HAS HAD IN 4 DAYS. NO ACUTE CONCERNS OVERNIGHT.
[2024-07-21 07:46] VITALS: BP 117/68
[2024-07-21] MEDS ORDERED: CEFD300 PO (14:50)
[2024-07-21] MEDS ORDERED: ELIQUIS5 M2 PO (14:50)
[2024-07-21] MEDS ORDERED: METO25 PO (14:51)
--- NOTE | 2024-07-21 15:24 | NUR ---
DISCHARGE NOTE PT DISCHARGED HOME AT APPROX 1520. PT AND PT'S PROVIDED W/ VERBAL AND WRITTEN INSTRUCTIONS AND REPORTED UNDERSTANDING. PT A&OX4, VSS, AMB W/ SBA, TOLERATING PO, VOIDING, AND DENIED PAIN. MENSAH REMOVED. BELONGINGS WERE RETURNED AND PT ESCOURTED OUT VIA W/C BY WM BARR.
== END 2024-07-21 15:24 | disposition home or self-care (01) | DRG 872 ==
LOC: ER 01:56 → ERHOLD 04:31 → MEDS 15:16
PROVIDERS: Family Medicine; Student in an Organized Health Care Education/Training Program; ADMIT Internal Medicine
DX: A41.59 Other Gram-negative sepsis (principal); N17.9 Acute kidney failure, unspecified; N39.0 Urinary tract infection, site not specified; Z66 Do not resuscitate; Z68.39 Body mass index [BMI] 39.0-39.9, adult; Z28.21 Immunization not carried out because of patient refusal; E66.9 Obesity, unspecified; I48.91 Unspecified atrial fibrillation; I25.10 Atherosclerotic heart disease of native coronary artery without angina pectoris; N40.0 Benign prostatic hyperplasia without lower urinary tract symptoms; I25.2 Old myocardial infarction; Z95.5 Presence of coronary angioplasty implant and graft
CPT/HCPCS: 36415; 51702; 71045; 76770; 80048; 80053; 81001; 83605; 83735; 84145; 84443; 84484; 85025; 87040; 87077; 87086; 87186; 93005; 93010; 96365; 99285-25; A9270; C8929; J0696; J1650; J3475; J3480; J7030; Q9957

== ENCOUNTER → 2024-07-28 | Outpatient (CLI) | payer MEDICARE ==
[~2024-07-28] MED LIST changes: +CEFD300 PO; +FINA5 PO
[2024-07-28 18:22] LABS: Source, Urine Clean Catch
[2024-07-28 19:33] LABS: Appearance, Urine Hazy (Clear); Bilirubin, Urine Neg (Neg); Blood, Urine 1+ (Neg); Color, Urine Yellow (P-Yellow); Glucose Qualitative, Urine Neg (Neg); Ketones, Urine Neg (Neg); Leukocyte Esterase, Urine 2+ (Neg); Nitrite, Urine Neg (Neg); Protein, Urine Neg (Neg); Specific Gravity, Urine 1.015 (1.003-1.022); Urobilinogen, Urine NORM (Normal)
[2024-07-28 19:43] LABS: Amorphous Light (0-Heavy); Bacteria Mod /hpf; Hyaline Casts 0-2 /lpf (0-2); Red Blood Cells, Urine 0-2 /hpf (0-2); Squamous Epithelial Cells Few /hpf (Few)
== END ==
LOC: LAB SHORT 18:21 → LAB 18:21
PROVIDERS: Physician Assistant
DX: A41.9 Sepsis, unspecified organism (principal)
CPT/HCPCS: 81001; 87086

== ENCOUNTER 2025-04-14 05:59 | Day surgery (SDC) | payer OTHER ==
[2025-03-25 10:18] VITALS: BP 137/80
[2025-04-14] VITALS (14 sets, daily range): BP systolic 120–148; BP diastolic 65–91
[~2025-04-14] VITALS: Ht 175.3 cm; Wt 131.4 kg
[~2025-04-14 05:59] MED LIST changes: +ALOE JUICE PO; +COLLOIDAL SILVER PO; +COQ1050 MG PO; +ELECTROLYTES PO; +LIVER CLEANSE PO; +Magnesium500 M1 PO; +OMEGA 3 PO; +SOURSOP PO; +TURMERIC ROOT5000 GM PO; +VITAMIN D PO; +[UNRECOGNIZED DRUG - OTHER] PO; +[UNRECOGNIZED DRUG - OTHER] PO; +[UNRECOGNIZED DRUG - OTHER] PO; +[UNRECOGNIZED DRUG - OTHER] PO; +[UNRECOGNIZED DRUG - OTHER] PO; +[UNRECOGNIZED DRUG - OTHER] PO
[2025-04-14] MEDS ORDERED: Ropivacaine 0.5% HCl/Pf 123.125 MG,EPINEPHrine HCL 0.25 MG,Ketorolac Tromethamine 15 MG... INFIL SCH (06:10)
[2025-04-14] MEDS ORDERED: CeFAZolin Sodium 3,000 MG in NS 100 ML IV SCH ×2 (06:10→16:00)
[2025-04-14] MEDS ORDERED: Tranexamic Acid 100 ML IV SCH (06:10)
[2025-04-14] MEDS ORDERED: Chlorhexidine Mouth Care 15 ML UDC MT SCH (06:10)
--- NOTE | 2025-04-14 06:48 | NUR ---
DR ARREOLA CALLED TO REPORT NOTED MOISTURE AND ERYTHEMA TO LEFT GROIN AREA. THIS WAS NOTED UPON PREPPING WITH CLIP PREP. PATIENT STATED THAT HE HAD CLEANED THE AREA WITH PRESCRIBED CHLORHEXIDINE SOAP X2 AND WAS NOT SURE IF HE HAD IT WHEN LAST EXAMED BY DR ARREOLA IN THE OFFICE. DR ARREOLA WOULD LIKE TO ASSESS AREA UPON ARRIVAL TO DAY SURGERY THIS AM.
[2025-04-14] MEDS ORDERED: CeFAZolin Sodium 3,000 MG VIAL ONE (07:09)
[2025-04-14] MEDS ORDERED: Midazolam HCl 1MG / ML 2ML Vial ONE (07:32)
[2025-04-14] MEDS ORDERED: Ondansetron HCl 2 MG / ML 2ML Vial ONE (07:32)
[2025-04-14] MEDS ORDERED: Dexamethasone Sod Phos 10 MG/ML 1ML VIAL ONE (07:32)
[2025-04-14] MEDS ORDERED: FentaNYL Citrate 50 MCG/ML 2 ML Injection ONE (07:32)
[2025-04-14] MEDS ORDERED: Phenylephrine HCl 100 MCG/ML-NS 10MLSYR (1MG/10ML) ONE (07:32)
[2025-04-14] MEDS ORDERED: ePHEDrine Sulfate 50 MG/ML 1ML Injection ONE (08:05)
[2025-04-14] MEDS ORDERED: Glycopyrrolate 0.2 MG/ML 5ML VIAL ONE (08:23)
[2025-04-14] MEDS ORDERED: Labetalol HCL 5 MG/ML 4ML Injection (Single Dose) IV PRN (09:05)
[2025-04-14] MEDS ORDERED: ePHEDrine Sulfate 50 MG/ML 1ML Injection IV PRN (09:05)
[2025-04-14] MEDS ORDERED: FentaNYL Citrate 50 MCG/ML 2 ML Injection IV PRN ×2 (09:05→09:10)
[2025-04-14] MEDS ORDERED: Metoclopramide HCl 5MG / ML 2ML Vial IV PRN ×2 (09:05→10:10)
[2025-04-14] MEDS ORDERED: Ondansetron HCl 2 MG / ML 2ML Vial IV PRN ×2 (09:05→10:05)
[2025-04-14] MEDS ORDERED: HYDROmorphone HCl/Pf 1MG SYR IV PRN ×3 (09:10→10:00)
[2025-04-14] MEDS ORDERED: Prochlorperazine Edisylate 10 mg Vial IV PRN (10:05)
[2025-04-14] MEDS ORDERED: Magnesium Hydroxide Conc 10 ML UDC PO PRN (10:10)
[2025-04-14] MEDS ORDERED: Ketorolac Tromethamine 15mg Vial IV SCH (12:00)
[2025-04-14] MEDS ORDERED: Vitamin D1000 UNI1 PO (15:44)
--- NOTE | 2025-04-14 16:03 | NUR ---
PT STRAIGHT CATHED FOR 650CC CLEAR YELLOW URINE PER HIS NORM AT HOME. IV DC'D. PT CLEARED BY PT. DISCHARGE INSTRUCTION REVIEWED. STATED UNDERSTANDING. DC'D TO POV VIA W/C WITH PRINTED INSTRUCT.
[2025-04-15] MEDS ORDERED: Cholecalciferol 1000 Unit Tablet (=25MCG) PO SCH (09:00)
== END 2025-04-14 16:19 | disposition home or self-care (01) ==
LOC: ORSCMMR 05:59 → ORD 07:30 → SURS 10:31 → ORSCMMR 10:31 → SURS 16:19 → ORSCMMR 16:19
PROVIDERS: Orthopaedic Surgery
PROC: 0SRB0JA Replacement of Left Hip Joint with Synthetic Substitute, Uncemented, Open Approach (ICD-10-PCS; principal; 2025-04-14 07:30)
DX: M16.12 Unilateral primary osteoarthritis, left hip (principal); I48.91 Unspecified atrial fibrillation; E11.22 Type 2 diabetes mellitus with diabetic chronic kidney disease; I12.9 Hypertensive chronic kidney disease with stage 1 through stage 4 chronic kidney disease, or unspecified chronic kidney disease; N18.9 Chronic kidney disease, unspecified; I25.10 Atherosclerotic heart disease of native coronary artery without angina pectoris; Z86.73 Personal history of transient ischemic attack (TIA), and cerebral infarction without residual deficits; E66.01 Morbid (severe) obesity due to excess calories; Z68.41 Body mass index [BMI] 40.0-44.9, adult; Z79.01 Long term (current) use of anticoagulants; Z79.899 Other long term (current) drug therapy
CPT/HCPCS: 72170; 97110; 97116; 97161; A9270; C1713; C1776; J0166; J0690; J0735; J1100; J1885; J2250; J2371; J2405; J2704; J2795; J3010; J7120